=== PATIENT | female | born 1995 | race African-American/Black ===

== ENCOUNTER 2016-12-12 07:16 | Emergency (ER) | payer OTHER ==
[~2016-12-12] VITALS: Ht 157.5 cm; Wt 88.5 kg
[~2016-12-12 07:16] MED LIST: MOTRIN800 MG PO
[2016-12-12 07:54] LABS: ADD MIUA? YES; BILIRUBIN NEGATIVE; BLOOD SMALL; COLOR YELLOW ((YELLOW)); GLUCOSE (STRIP) NEGATIVE; KETONES NEGATIVE; LEUKOCYTES SMALL; NITRITE NEGATIVE; PROTEIN (STRIP) NEGATIVE; SPECIFIC GRAVITY 1.017 (1.000-1.030); UROBILINOGEN 0.2 MG/DL (0.2-1.0)
[2016-12-12 07:58] LABS: EOSINOPHIL (%) 0.8 % (0-5); EOSINOPHIL COUNT 0.1 K/uL (0-0.3); HEMATOCRIT 37.4 % (36.0-46.0); IMMATURE GRANULOCYTE (%) 0.4 % (0.0-0.7); INSTRUMENT ABS NEUTROPHIL CT 7.5 K/uL; LYMPHOCYTE COUNT 2.5 K/uL (1.0-2.8); MCH 24.9 PG (29.0-34.0); MCHC 31.8 G/DL (30.0-36.0); MCV 78.4 FL (83-99); MEAN PLAT.VOLUME 9.4 uM^3 (9.5-12.4); MONOCYTE COUNT 0.5 K/uL (0-0.8); NEUTROPHIL COUNT 7.5 K/uL (1.8-6.4); PLATELET COUNT 246 K/uL (156-360); RBC DIS.WIDTH-CV 13.2 % (11.8-14.6); RBC DIS.WIDTH-SD 37.1 % (39-53); RED BLOOD COUNT 4.77 M/uL (3.80-5.20); WHITE BLOOD COUNT 10.7 K/uL (4.1-10.2)
[2016-12-12 08:03] LABS: BACTERIA 1+ /HPF; EPITHELIAL CELLS 1+ /HPF; MUCUS NONE SEEN /LPF; UCUL ADDED? YES; WHITE BLOOD CELLS 20-30 /HPF (0-5)
[2016-12-12 08:09] LABS: CHLORIDE 106 mEq/L (99-109); SODIUM 137 mEq/L (136-147)
[2016-12-12 08:11] LABS: GLUCOSE 91 mg/dL (70-99)
[2016-12-12 08:12] LABS: ANION GAP 10 MEQ/L (2-14)
[2016-12-12 08:15] LABS: GFR ESTIMATE (CALCULATED) > 59 mL/min/
[2016-12-12 08:16] LABS: UREA NITROGEN (BUN) 10 mg/dL (9-23)
[2016-12-12 08:23] LABS: QUANTITATIVE HCG 8363.5 MIU/ML
[2016-12-12] MEDS ORDERED: MACROBID100 MG PO (11:40)
[2016-12-12 12:14] VITALS: BP 118/74
== END 2016-12-12 12:14 | disposition home or self-care (01) ==
LOC: EME 07:16
PROVIDERS: Emergency Medicine
DX: O23.42 Unspecified infection of urinary tract in pregnancy, second trimester (principal); Z3A.18 18 weeks gestation of pregnancy
CPT/HCPCS: 76770; 76805; 80048; 81003; 84702; 85025; 87077; 87086; 99281; 99284

== ENCOUNTER 2017-04-02 15:53 | Outpatient (CLI) | payer OTHER ==
[~2017-04-02 15:53] MED LIST changes: +MACROBID100 MG PO
[2017-04-02 16:03] VITALS: BP 144/65
[2017-04-02 16:49] VITALS: BP 128/62
[2017-04-02 17:35] LABS: BASOPHIL (%) 0.3 % (0-1); EOSINOPHIL (%) 0.8 % (0-5); EOSINOPHIL COUNT 0.1 K/uL (0-0.3); HEMATOCRIT 36.7 % (36.0-46.0); HEMOGLOBIN 11.2 G/DL (11.9-15.5); IMMATURE GRANULOCYTE (%) 0.8 % (0.0-0.7); LYMPHOCYTE (%) 20.1 % (15-42); LYMPHOCYTE COUNT 2.1 K/uL (1.0-2.8); MCH 23.2 PG (29.0-34.0); MCHC 30.5 G/DL (30.0-36.0); MONOCYTE (%) 6.8 % (3-12); MONOCYTE COUNT 0.7 K/uL (0-0.8); NEUTROPHIL (%) 71.2 % (45-76); NEUTROPHIL COUNT 7.6 K/uL (1.8-6.4); PLATELET COUNT 281 K/uL (156-360); RBC DIS.WIDTH-CV 13.7 % (11.8-14.6); RBC DIS.WIDTH-SD 37.2 % (39-53); RED BLOOD COUNT 4.83 M/uL (3.80-5.20); WHITE BLOOD COUNT 10.7 K/uL (4.1-10.2)
[2017-04-02 17:40] VITALS: BP 107/57
[2017-04-02 17:47] LABS: ALBUMIN 3.2 G/DL (3.2-4.8); CHLORIDE 106 MEQ/L (99-109); POTASSIUM 4.1 MEQ/L (3.7-5.4); SODIUM 137 MEQ/L (136-147); TOTAL BILIRUBIN 0.2 MG/DL (0.0-1.0)
[2017-04-02 17:52] LABS: ALKALINE PHOSPHATASE 106 IU/L (3-129); ALT (GPT) 6 IU/L (3-49); AST (GOT) 10 IU/L (2-34); CREATININE 0.7 MG/DL (0.6-1.3); GFR ESTIMATE (CALCULATED) > 59 mL/min/; GLUCOSE 81 mg/dL (70-99); LACTATE DEHYDROGENASE 119 IU/L (20-246); TOTAL PROTEIN 6.9 G/DL (6.4-8.3); UREA NITROGEN (BUN) 9 mg/dL (9-23); URIC ACID 3.9 mg/dL (3.1-9.2)
[2017-04-02 18:13] VITALS: BP 116/67
[2017-04-02 18:20] LABS: UR CREATININE CONCENTRATION 202.2 MG/DL
[2017-04-02 19:25] VITALS: BP 122/72
[2017-04-02 23:29] VITALS: BP 124/74
[2017-04-03 03:12] VITALS: BP 116/49
[2017-04-03 07:45] VITALS: BP 116/68
[2017-04-03 09:32] VITALS: BP 140/72
== END 2017-04-03 11:20 | disposition home or self-care (01) ==
LOC: LDRP-OP 15:53 → 2WEST 15:55
PROVIDERS: Obstetrics & Gynecology
DX: O41.03X0 Oligohydramnios, third trimester, not applicable or unspecified (principal); O36.8130 Decreased fetal movements, third trimester, not applicable or unspecified; Z3A.35 35 weeks gestation of pregnancy; O99.213 Obesity complicating pregnancy, third trimester; E66.9 Obesity, unspecified
CPT/HCPCS: 59025; 76818; 80053; 82570; 83615; 84156; 84550; 85025; 87081; G0378; J7120

== ENCOUNTER 2017-04-18 10:30 | Inpatient (IN) | payer OTHER ==
[~2017-04-18] VITALS: Ht 157.5 cm; Wt 98.6 kg
[2017-04-18 10:55] VITALS: BP 134/69
[2017-04-18 13:02] LABS: BASOPHIL (%) 0.4 % (0-1); EOSINOPHIL (%) 1.1 % (0-5); EOSINOPHIL COUNT 0.1 K/uL (0-0.3); HEMATOCRIT 35.6 % (36.0-46.0); HEMOGLOBIN 10.7 G/DL (11.9-15.5); IMMATURE GRANULOCYTE (%) 1.1 % (0.0-0.7); LYMPHOCYTE (%) 21.5 % (15-42); LYMPHOCYTE COUNT 2.3 K/uL (1.0-2.8); MCH 22.7 PG (29.0-34.0); MCHC 30.1 G/DL (30.0-36.0); MCV 75.4 FL (83-99); MONOCYTE (%) 5.1 % (3-12); MONOCYTE COUNT 0.5 K/uL (0-0.8); NEUTROPHIL (%) 70.8 % (45-76); NEUTROPHIL COUNT 7.4 K/uL (1.8-6.4); PLATELET COUNT 283 K/uL (156-360); RBC DIS.WIDTH-CV 14.2 % (11.8-14.6); RBC DIS.WIDTH-SD 38.4 % (39-53); RED BLOOD COUNT 4.72 M/uL (3.80-5.20); WHITE BLOOD COUNT 10.5 K/uL (4.1-10.2)
[2017-04-18 13:26] LABS: ALBUMIN 3.1 G/DL (3.2-4.8); ALKALINE PHOSPHATASE 120 IU/L (3-129); ALT (GPT) 5 IU/L (3-49); AST (GOT) 9 IU/L (2-34); CHLORIDE 107 MEQ/L (99-109); CREATININE 0.6 MG/DL (0.6-1.3); GFR ESTIMATE (CALCULATED) > 59 mL/min/; GLUCOSE 80 mg/dL (70-99); LACTATE DEHYDROGENASE 137 IU/L (20-246); POTASSIUM 4.2 MEQ/L (3.7-5.4); SODIUM 137 MEQ/L (136-147); TOTAL BILIRUBIN 0.3 MG/DL (0.0-1.0); TOTAL PROTEIN 6.3 G/DL (6.4-8.3); UREA NITROGEN (BUN) 7 mg/dL (9-23); URIC ACID 3.3 mg/dL (3.1-9.2)
[2017-04-18 19:09] VITALS: BP 122/59
[2017-04-19] VITALS (23 sets, daily range): BP systolic 104–144; BP diastolic 51–94
[2017-04-20 07:36] LABS: BASOPHIL (%) 0.3 % (0-1); EOSINOPHIL (%) 0.7 % (0-5); EOSINOPHIL COUNT 0.1 K/uL (0-0.3); HEMATOCRIT 32.9 % (36.0-46.0); HEMOGLOBIN 10.1 G/DL (11.9-15.5); IMMATURE GRANULOCYTE (%) 0.7 % (0.0-0.7); LYMPHOCYTE (%) 20.2 % (15-42); LYMPHOCYTE COUNT 2.8 K/uL (1.0-2.8); MCHC 30.7 G/DL (30.0-36.0); MCV 74.8 FL (83-99); MONOCYTE (%) 8.2 % (3-12); MONOCYTE COUNT 1.1 K/uL (0-0.8); NEUTROPHIL (%) 69.9 % (45-76); NEUTROPHIL COUNT 9.5 K/uL (1.8-6.4); PLATELET COUNT 250 K/uL (156-360); RBC DIS.WIDTH-CV 14.4 % (11.8-14.6); RBC DIS.WIDTH-SD 38.5 % (39-53); WHITE BLOOD COUNT 13.6 K/uL (4.1-10.2)
[2017-04-21 07:38] VITALS: BP 118/71
[2017-04-21] MEDS ORDERED: FERROCITE324 MG PO (10:33)
[2017-04-21] MEDS ORDERED: DOCUSATE SODIU100 MG PO (10:33)
[2017-04-21 14:51] VITALS: BP 130/69
[2017-04-21] MEDS ORDERED: IBUPROFEN800 MG PO (16:12)
== END 2017-04-21 18:22 | disposition home or self-care (01) | DRG 775 ==
LOC: LDRP-OP 10:30 → 2WEST 10:31 → LDRP-OP 06-06 11:27
PROVIDERS: Advanced Practice Midwife
DX: O71.82 Other specified trauma to perineum and vulva (principal); O41.03X0 Oligohydramnios, third trimester, not applicable or unspecified; D62 Acute posthemorrhagic anemia; O99.214 Obesity complicating childbirth; E66.9 Obesity, unspecified; O99.824 Streptococcus B carrier state complicating childbirth; O99.02 Anemia complicating childbirth; Z37.0 Single live birth; F32.9 Major depressive disorder, single episode, unspecified; Z3A.37 37 weeks gestation of pregnancy; O99.340 Other mental disorders complicating pregnancy, unspecified trimester; O99.344 Other mental disorders complicating childbirth
CPT/HCPCS: 76818; 80053; 82570; 83615; 84156; 84550; 85025; C1755; G0378; J0595; J1050; J2540; J7120